=== PATIENT | male | born 1975 ===

== ENCOUNTER 2016-07-15 18:51 | Emergency (ER) | payer SELFPAY ==
--- NOTE | 2016-07-15 19:01 | C.PDOC ---
History Of Present Illness 41 yr old male brought in by police, presents to the ER for smoking PCP and acting bizarre in public. ROS unobtainable. Time Seen by Provider: 07/15/16 18:56 History Per: EMS, Other (Police) History/Exam Limitations: None Onset/Duration Of Symptoms: Unknown Past Medical History Reviewed: Historical Data, Nursing Documentation, Vital Signs Vital Signs: Last Vital Signs Temp 97.9 F 07/15/16 22:45 Pulse 76 07/15/16 22:45 Resp 18 07/15/16 22:45 BP 98/47 L 07/15/16 22:45 Pulse Ox 98 07/15/16 22:45 Family History: States: No Known Family Hx Review Of Systems Review Of Systems: ROS cannot be obtained secondary to pt's inabilty to answer questions. Physical Exam - Physical Exam Appears: Well, Non-toxic, No Acute Distress Skin: Warm, Dry, No Rash Head: Atraumatic, Normacephalic Chest: Symmetrical, No Tenderness Cardiovascular: Rhythm Regular, No Murmur Respiratory: Normal Breath Sounds, No Rales, No Rhonchi, No Wheezing Extremity: Normal ROM, No Swelling Neurological/Psych: Other (Alert, awake but disoriented. ) ED Course And Treatment - Laboratory Results Result Diagrams: 07/15/16 20:44 07/15/16 20:44 Lab Interpretation: Abnormal (ETOH 288, tox +THC) O2 Sat by Pulse Oximetry: 96 Reevaluation Time: 00:01 Reassessment Condition: Improved (clinically sober, wants d/c.) Medical Decision Making Medical Decision Making: PLAN: * Patient is put in 4 point restraints. 0000: alcohol and marijuana abuse. Disposition Doctor Will See Patient In The: Office Counseled Patient/Family Regarding: Studies Performed, Diagnosis - Disposition Disposition: HOME/ ROUTINE Disposition Time: 00:02 Condition: GOOD - Clinical Impression Clinical Impression: Alcohol abuse, Cannabis abuse - Scribe Statement The provider has reviewed the documentation as recorded by the Gale Hanna Provider Attestation: All medical record entries made by the Jenniferibgaye were at my direction and personally dictated by me. I have reviewed the chart and agree that the record accurately reflects my personal performance of the history, physical exam, medical decision making, and the department course for this patient. I have also personally directed, reviewed, and agree with the discharge instructions and disposition.
[2016-07-15 21:01] LABS: BASO % 0.7 % (0.0-2.0); EOS % 0.8 % (0.0-4.0); HEMATOCRIT 41.7 % (35.0-51.0); LYMPH # 2.4 K/uL (1.0-4.3); LYMPH % 50.6 % (20.0-40.0); MEAN CELL VOLUME 95.7 fL (80.0-94.0); MEAN CORPUSCULAR HEMOGLOBIN 31.7 pg (27.0-31.0); MEAN CORPUSCULAR HGB CONC 33.1 g/dL (33.0-37.0); MEAN PLATELET VOLUME 11.1 fL (7.2-11.7); MONO # 0.3 K/uL (0.0-0.8); MONO % 5.5 % (0.0-10.0); NRBC % 0.1 % (0.0-2.0); RED CELL DISTRIBUTION WIDTH 13.7 % (11.5-14.5); WHITE BLOOD COUNT 4.7 K/uL (4.8-10.8)
[2016-07-15 21:14] LABS: CHLORIDE 104 mmol/L (98-107); SODIUM 142 mmol/L (132-148)
[2016-07-15 21:15] LABS: POTASSIUM 4.1 mmol/L (3.6-5.2)
[2016-07-15 21:16] LABS: GFR AFRICAN-AMERICAN > 60
[2016-07-15 21:17] LABS: ALB/GLOB RATIO 1.2 (1.0-2.1); ALKALINE PHOSPHATASE 76 U/L (38-126); ALT/SGPT 138 U/L (21-72); AST/SGOT 179 U/L (17-59); BILIRUBIN,TOTAL 0.5 mg/dL (0.2-1.3); BLOOD UREA NITROGEN 5 mg/dL (9-20); CARBON DIOXIDE 26 mmol/L (22-30); GLUCOSE,RANDOM 91 mg/dL (75-110); TOTAL PROTEIN 7.6 g/dL (6.3-8.3)
[2016-07-15 21:18] LABS: ALCOHOL SERUM 288 mg/dl (0-10); CALCIUM 8.6 mg/dl (8.6-10.4)
[2016-07-15 22:51] LABS: RBC URINE 11 /hpf (0-3); URINE BACTERIA RARE (<OCC); URINE BILIRUBIN NEGATIVE (NEGATIVE); URINE BLOOD 2+ (NEGATIVE); URINE COLOR Yellow (YELLOW); URINE GLUCOSE (UA) NORMAL (Normal); URINE KETONE NEGATIVE (NEGATIVE); URINE LEUKOCYTE ESTERASE NEG Leu/uL (Negative); URINE PROTEIN NEGATIVE (NEGATIVE); URINE UROBILINOGEN NORMAL mg/dL (0.2-1.0)
[2016-07-16 00:02] VITALS: O2SAT 96
[2016-07-16 00:36] VITALS: BP 100/52; PULSE 77; RESP 17; TEMP 98
== END 2016-07-16 00:38 | disposition home or self-care (01) ==
LOC: EDBD 18:51 → C.ER 18:51
DX: F10.10 Alcohol abuse, uncomplicated (principal); F12.10 Cannabis abuse, uncomplicated; Y90.8 Blood alcohol level of 240 mg/100 ml or more
CPT/HCPCS: 80053; 81001; 82948; 85025; 99285; G0480